=== PATIENT | male | born 1955 | race African-American/Black ===

== ENCOUNTER 2022-01-20 10:17 | Outpatient (CLI) | payer OTHER | END 2022-01-20 10:18 | disposition home or self-care (01) | LOC: RAD-FRANK 10:17 | PROVIDERS: ATTEND Nurse Practitioner Family | DX: R09.89 Other specified symptoms and signs involving the circulatory and respiratory systems (principal); J93.9 Pneumothorax, unspecified; R91.8 Other nonspecific abnormal finding of lung field | CPT/HCPCS: 71046 ==